=== PATIENT | female | born 1980 | race African-American/Black ===

== ENCOUNTER → 2019-06-02 | Day surgery (SDC) | payer OTHER ==
[~2019-06-02] MED LIST: ACETAMINOPHEN 325 MG TABLET PO PRN; ALBUTEROL SULFATE 2.5 MG/3 ML NEBU. NEB PRN; ATROPINE 0.5 MG/5 ML DISP.SYRIN. IV PRN; CYAN50008 PO; ESTR1TAB24 PO; FAMOTIDINE 20 MG/2 ML VIAL ONE; IV RINGERS SOLUTION,LACTATED 1,000 ML IV SCH; LIDOCAINE 2% PF Vial for OR 5 ML VIAL. ONE; MIDAZOLAM HCL PF 2 MG/2 ML VIAL. IV PRN; MULT-245 PO; ONDANSETRON PF 4 MG/2 ML VIAL. IV PRN; PHENOL ORAL SPRAY 177ML BOTTLE. MM PRN; PROPOFOL 40 ML IV ONE; diphenhydrAMINE 50 MG/ML VIAL IV PRN
[2019-06-02 11:49] VITALS: BP 117/76
== END ==
LOC: SURG 09:27
PROVIDERS: ATTEND Surgery
DX: K92.1 Melena (principal); K21.9 Gastro-esophageal reflux disease without esophagitis; E66.9 Obesity, unspecified; Z68.31 Body mass index [BMI] 31.0-31.9, adult; Z90.710 Acquired absence of both cervix and uterus
CPT/HCPCS: 45378; J2704; J3490; J7120; J2001